=== PATIENT | female | born 1975 ===

== ENCOUNTER 2021-01-02 06:45 | Emergency (ER) ==
[2021-01-02] MEDS ORDERED: HYDROCODONE/APAP 10/325 TAB ONE (07:48)
[2021-01-02] MEDS ORDERED: METHYLPREDNISOLONE 125 MG INJ ONE (07:53)
[2021-01-02 08:05] LABS: Urine Blood 1+ (Negative); Urine Glucose Negative (Negative); Urine Protein 1+ (Negative); Urine Specific Gravity >=1.030 (1.005-1.030); Urine pH 5.5 (5.0-7.0)
[2021-01-02 08:36] LABS: Urine Bacteria LOADED /HPF (<20); Urine RBC <5 /HPF (NONE SEEN)
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
[2021-01-02 09:20] LABS: Urine Specific Gravity/Preg >1.030 (1.005-1.030)
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
--- NOTE | 2021-01-02 09:22 | ER ---
Nurse's Notes [facility] Name: Aishwarya Sandoavl Age: 45 yrs Sex: Female : 1975 Arrival Date: 01/02/2021 Time: 06:57 Bed 13 Private MD: Diagnosis: Low back pain Presentation: 01/02 06:58 Chief complaint: Patient states: arrived ems for worsening back pain x1 day. denies ak2 injury. Coronavirus screen: Client denies travel out of the [place] in the last 14 days. At this time, the client does not indicate any symptoms associated with coronavirus-19. Ebola Screen: Patient negative for fever greater than or equal to 101.5 degrees Fahrenheit, and additional compatible Ebola Virus Disease symptoms Patient denies exposure to infectious person. Patient denies travel to an Ebola-affected area in the 21 days before illness onset. No symptoms or risks identified at this time. Initial Sepsis Screen: Does the patient meet any 2 criteria? No. Patient's initial sepsis screen is negative. Does the patient have a suspected source of infection? No. Patient's initial sepsis screen is negative. Risk Assessment: Do you want to hurt yourself or someone else? Patient reports no desire to harm self or others. Onset of symptoms was January 02, 2021. 06:58 Method Of Arrival: EMS: [facility] ak2 06:58 Acuity: GUNNER 4 ak2 Triage Assessment: 07:00 General: Appears in no apparent distress. Behavior is calm, cooperative. Pain: ak2 Complains of pain in back. Historical: - Allergies: 07:00 No Known Allergies; ak2 - Immunization history:: Adult Immunizations unknown. - Social history:: Smoking status: unknown. Screenin:01 Abuse screen: Denies threats or abuse. Denies injuries from another. Nutritional ak2 screening: No deficits noted. Tuberculosis screening: No symptoms or risk factors identified. Fall Risk None identified. Assessment: 07:01 General: Appears in no apparent distress. Neuro: No deficits noted. Cardiovascular: No ak2 deficits noted. Respiratory: No deficits noted. 07:10 General: Appears uncomfortable, Behavior is calm, cooperative. Pain: Complains of pain rb3 in lumbar area Pain currently is 8 out of 10 on a pain scale. Neuro: Level of Consciousness is awake, alert, obeys commands, Oriented to person, place, time, situation. Cardiovascular: Patient's skin is warm and dry. Respiratory: Airway is patent Respiratory effort is even, unlabored, Respiratory pattern is regular, symmetrical. GI: No signs and/or symptoms were reported involving the gastrointestinal system. : No signs and/or symptoms were reported regarding the genitourinary system. 08:29 Reassessment: Patient appears in no apparent distress at this time. Patient and/or rb3 family updated on plan of care and expected duration. Pain level reassessed. Patient is alert, oriented x 3, equal unlabored respirations, skin warm/dry/pink. PT returned from CT. 09:30 Reassessment: Patient appears in no apparent distress at this time. No changes from rb3 previously documented assessment. 10:20 Reassessment: Patient appears in no apparent distress at this time. Patient and/or rb3 family updated on plan of care and expected duration. Pain level reassessed. Patient is alert, oriented x 3, equal unlabored respirations, skin warm/dry/pink. Vital Signs: 06:58 BP 134 / 83; Pulse 74; Resp 16; Temp 98.3; Pulse Ox 100% ; Weight 58.97 kg; Height 5 ak2 ft. 4 in. (162.56 cm); 08:29 BP 125 / 89; Pulse 65; Resp 16; Pulse Ox 100% ; rb3 09:30 BP 125 / 85; Pulse 62; Resp 17; Pulse Ox 99% ; rb3 10:20 BP 122 / 88; Pulse 61; Resp 16; Pulse Ox 100% ; rb3 06:58 Body Mass Index 22.31 (58.97 kg, 162.56 cm) ak2 ED Course: 06:57 Patient arrived in ED. am4 07:00 Triage completed. ak2 07:01 Patient has correct armband on for positive identification. ak2 07:01 Patient placed in the treatment room, on a stretcher. ak2 07:01 No provider procedures requiring assistance completed. Inserted saline lock: 20 gauge. ak2 07:10 Maintain EMS IV. Dressing intact. Good blood return noted. Site clean \T\ dry. Gauge \T\ rb 3 site: 20 g R hand. 07:12 Jennifer Larson FNP-C [facility]. kb 07:12 Bridger Lauren MD is Attending Physician. kb 07:19 Meggan Sanford, RN is Primary Nurse. rb3 08:27 CT Lumbar Spine Wo Con In Process Unspecified. EDMS 10:48 IV discontinued, intact, bleeding controlled, No redness/swelling at site. Pressure rb3 dressing applied. Administered Medications: 07:29 Drug: [place] (HYDROcodone-acetaminophen) 10 mg-325 mg 1 tabs Route: PO; rb3 08:00 Follow up: Response: No adverse reaction; Pain is decreased rb3 07:50 Drug: Robaxin (methocarbamol) 1 grams Route: IVPB; Infused Over: 1 hrs; Site: right rb3 hand; 08:50 Follow up: Response: No adverse reaction; IV Status: Completed infusion rb3 07:50 Drug: SOLU-Medrol (methylPrednisoLONE) 125 mg Route: IVP; Site: right hand; rb3 08:03 Follow up: Response: No adverse reaction rb3 10:09 Drug: Rocephin (cefTRIAXone) 1 grams Route: IV; Rate: calculated rate; Site: right hand;rb3 10:30 Follow up: Response: No adverse reaction; IV Status: Completed infusion rb3 Outcome: 09:22 Discharge ordered by . kb 10:48 Patient left the ED. kj1 10:48 Discharged to home via wheelchair, with significant other. rb3 10:48 Condition: stable 10:48 Discharge instructions given to patient, Instructed on discharge instructions, follow up and referral plans. medication usage, Demonstrated understanding of instructions, follow-up care, medications, Prescriptions given X 3. Signatures: Dispatcher [employer] EDDC Jennifer Larson FNP-C FNP-Jomar Huizar RN RN rr5 Teena Larson kj1 Meggan Sanford, RN RN rb3 Carole Reyes Anthony ak2 Corrections: (The following items were deleted from the chart) 07:00 06:58 Chief complaint: Patient states: arrived ems for worsening back pain x1 day. ak2 ak2
[2021-01-02] MEDS ORDERED: CEFTRIAXONE/SWI 1gm 1 GM/10 ML SYR ONE (10:30)
== END 2021-01-02 10:48 | disposition home or self-care (01) ==
LOC: ER 06:45
DX: M54.5 Low back pain (principal)
CPT/HCPCS: 72131; 81003; 81015; 81025; 87077; 87086; 87088; 87186; 96365; 96367; 96375; 99284; J0696; J2800; J2930